=== PATIENT | male | born 1980 | race African-American/Black ===

== ENCOUNTER → 2018-03-08 | Outpatient (CLI) | payer OTHER ==
[2018-03-08 19:50] LABS: ALBUMIN/GLOBULIN RATIO 1.38 (1.00-1.93); ALKALINE PHOSPHATASE 69 U/L (45-117); ALT/SGPT 21 U/L (12-78); ANION GAP 5 MEQ/L (8-16); AST/SGOT 9 U/L (7-37); BILIRUBIN,TOTAL 0.4 MG/DL (0.2-1.0); BLOOD UREA NITROGEN 17 MG/DL (7-18); CALCIUM LEVEL 9.2 MG/DL (8.5-10.1); CARBON DIOXIDE LEVEL 29 MEQ/L (21-32); CHLORIDE LEVEL 106 MEQ/L (98-107); CHOLESTEROL LEVEL 163 MG/DL (<200); CHOLESTEROL RISK RATIO 4.527 (<5); CREATININE FOR GFR 1.18 MG/DL (0.70-1.30); GLOMERULAR FILTRATION RATE > 60.0 (>60); GLUCOSE, FASTING 104 MG/DL (70-100); HDL CHOLESTEROL 36 MG/DL (>40); LDL CHOLESTEROL 109 MG/DL (<100); NON-HDL-C 127 MG/DL; POTASSIUM SERUM 4.5 MEQ/L (3.5-5.1); SODIUM LEVEL 140 MEQ/L (136-145); TOTAL PROTEIN 6.9 GM/DL (6.4-8.2); TRIGLYCERIDES LEVEL 88 MG/DL (<150)
[2018-03-08 20:03] LABS: ESTIMATED AVERAGE GLUCOSE 160 MG/DL (60-110); HEMOGLOBIN A1c 7.2 %
== END ==
LOC: M WUC 13:46
DX: E11.9 Type 2 diabetes mellitus without complications (principal)
CPT/HCPCS: 80053

== ENCOUNTER 2018-05-19 12:24 | Inpatient (IN) | payer OTHER ==
[~2018-05-19] VITALS: Ht 195.6 cm; Wt 104.8 kg
[~2018-05-19 12:24] MED LIST: COLA100C2; INSULANT; METF500T4; MILKSUS; NOVO70VL; NOVOLOG100 MG/ML; No Historical Meds; POTA10CA2
[2018-05-19] MEDS ORDERED: METF850T4 PO (12:42)
[2018-05-19 13:02] LABS: HEMATOCRIT 45.4 % (42.0-52.0); HEMOGLOBIN 15.3 g/dl (13.5-17.5); MEAN CORPUSCULAR HEMOGLOBIN 29.4 pg (27.0-33.0); MEAN CORPUSCULAR HGB CONC 33.7 g/dl (32.0-36.5); MEAN CORPUSCULAR VOLUME 87.1 fl (80.0-96.0); PLATELET COUNT, AUTOMATED 239 10^3/uL (150-450); RED BLOOD COUNT 5.21 10^6/uL (4.30-6.10); WHITE BLOOD COUNT 6.6 10^3/uL (4.0-10.0)
[2018-05-19 13:46] LABS: ACETAMINOPHEN LEVEL < 2.0 UG/ML (10.0-30.0); ALBUMIN 4.2 GM/DL (3.2-5.2); ALT/SGPT 18 U/L (12-78); BILIRUBIN,DIRECT 0.1 MG/DL (0.0-0.2); BILIRUBIN,TOTAL 0.5 MG/DL (0.2-1.0); BLOOD UREA NITROGEN 10 MG/DL (7-18); CALCIUM LEVEL 9.4 MG/DL (8.5-10.1); CARBON DIOXIDE LEVEL 25 MEQ/L (21-32); CHLORIDE LEVEL 105 MEQ/L (98-107); CREATININE FOR GFR 1.28 MG/DL (0.70-1.30); ETHYL ALCOHOL (ETHANOL) 0.003 % (0.000-0.010); GLOMERULAR FILTRATION RATE > 60.0 (>60); GLUCOSE, FASTING 159 MG/DL (70-100); SALICYLATE LEVEL 3.1 MG/DL (5.0-30.0); SODIUM LEVEL 141 MEQ/L (136-145); THYROID STIMULATING HORMONE 0.942 uIU/ML (0.358-3.740); TOTAL PROTEIN 7.4 GM/DL (6.4-8.2)
[2018-05-19 15:02] LABS: AMPHETAMINES LEVEL URINE NEGATIVE (NEGATIVE); BARBITURATES URINE NEGATIVE (NEGATIVE); BENZODIAZEPINES URINE NEGATIVE (NEGATIVE); CANNABINOIDS URINE POSITIVE (NEGATIVE); COCAINE METABOLITE URINE NEGATIVE (NEGATIVE); METHADONE URINE NEGATIVE (NEGATIVE); OPIATES URINE NEGATIVE (NEGATIVE); PHENCYCLIDINE URINE NEGATIVE (NEGATIVE)
[2018-05-19] MEDS ORDERED: MOM 30ML SUSPENSION UDC PO PRN (17:00)
[2018-05-19] MEDS ORDERED: traZODone 50 MG TAB PO PRN (17:00)
[2018-05-19] MEDS ORDERED: MAALOX 30 ML SUSP *UDC PO PRN (17:00)
[2018-05-19] MEDS ORDERED: ACETAMINOPHEN TAB 650MG DOSE (2X325MG) PO PRN (17:00)
[2018-05-19 17:44] VITALS: BP 148/82
[2018-05-19] MEDS: metFORMIN 850 MG TAB PO SCH (21:10)
[2018-05-20 06:00] VITALS: BP 142/75
[2018-05-20] MEDS: metFORMIN 850 MG TAB PO SCH ×4 (09:00→22:00)
[2018-05-20 12:41] VITALS: BP 120/78
--- NOTE | 2018-05-20 12:55 | NUR ---
Patient seen, note to follow.
[2018-05-20] MEDS: FLUoxetine 10 MG CAP PO SCH (14:23)
[2018-05-20 18:00] VITALS: BP 127/78
[2018-05-20] MEDS ORDERED: PANTOPRAZOLE 40MG TAB (PROTONIX) PO SCH (21:00)
[2018-05-20] MEDS ORDERED: CYCLOBENZAPRINE 10 MG TAB PO PRN (22:30)
[2018-05-21 06:12] VITALS: BP 114/55
[2018-05-21 07:01] LABS: BASO % 0.4 % (0.0-1.0); EOS # 0.2 10^3/uL (0.0-0.50); EOS % 2.3 % (0.0-3.0); HEMATOCRIT 42.2 % (42.0-52.0); HEMOGLOBIN 14.4 g/dl (13.5-17.5); LYMPH # 3.4 10^3/uL (1.5-4.5); MEAN CORPUSCULAR HEMOGLOBIN 29.5 pg (27.0-33.0); MEAN CORPUSCULAR HGB CONC 34.1 g/dl (32.0-36.5); MEAN CORPUSCULAR VOLUME 86.5 fl (80.0-96.0); MONO # 0.6 10^3/uL (0.0-0.8); MONO % 7.1 % (0.0-5.0); NEUTROPHILS # 3.7 10^3/uL (1.8-7.7); NEUTROPHILS % 46.9 % (36.0-66.0); PLATELET COUNT, AUTOMATED 231 10^3/uL (150-450); RED BLOOD COUNT 4.88 10^6/uL (4.30-6.10); WHITE BLOOD COUNT 7.9 10^3/uL (4.0-10.0)
[2018-05-21 07:21] LABS: ALBUMIN 3.9 GM/DL (3.2-5.2); ALT/SGPT 17 U/L (12-78); BILIRUBIN,TOTAL 0.5 MG/DL (0.2-1.0); BLOOD UREA NITROGEN 14 MG/DL (7-18); CALCIUM LEVEL 9.3 MG/DL (8.5-10.1); CARBON DIOXIDE LEVEL 27 MEQ/L (21-32); CHLORIDE LEVEL 105 MEQ/L (98-107); CREATININE FOR GFR 1.27 MG/DL (0.70-1.30); GLOMERULAR FILTRATION RATE > 60.0 (>60); GLUCOSE, FASTING 105 MG/DL (70-100); HEMOGLOBIN A1c 7.2 %; POTASSIUM SERUM 4.3 MEQ/L (3.5-5.1); SODIUM LEVEL 139 MEQ/L (136-145); TOTAL PROTEIN 6.7 GM/DL (6.4-8.2)
[2018-05-21] MEDS ORDERED: metFORMIN (GLUCOPHAGE) 500 MG TAB PO SCH (08:00)
[2018-05-21] MEDS: FLUoxetine 10 MG CAP PO SCH (08:18)
[2018-05-21] MEDS ORDERED: ONDANSETRON 4 MG TAB (S0181) PO PRN (11:00)
--- NOTE | 2018-05-21 11:01 | MHHPE ---
DATE OF ADMISSION: 05/19/2018 CHIEF COMPLAINT: Feels depressed. SUBJECTIVE: He is 37 years old. He is single. He had partner. They have been together for the last couple of years, she has a daughter, who is 13, lives with her. Patient came in to the hospital yesterday, says he was hoping to talk to someone, let out his concerns and frustrations, says he was hoping he would see someone from mental health, a counselor, but was upset when assessed and was hospitalized involuntarily. Says that has irrigated him, that was not his intention, but had wanted to let out matters that have been bothering him. He has been feeling depressed, says for months, possibly years, but that things had escalated recently. Says he and his girlfriend are having argument, she would not back off, he decided to put a gun to his head, says did not intend killing himself, does not think he was going to pull the trigger, but that he wanted her to back off. Says the fact that he had done that, picked up a gun, worried him and he decided to come in, hoping he would talk to a counselor, but not be admitted, as mentioned previously. Says he felt frustrated, and tends to get angry and upset, says others notice that, his girlfriend points it out, says this upsets him even further. Says has felt he has required help for quite a while, but that when he has mentioned it to others, including a couple of friends or acquaintances, says they have tended to brush it off. Does not remember the last time he felt well consistently. Says gets into an argument with his girlfriend on matters, which would not have bothered him a while back, but currently do. He says these matters are also sometimes from the past, she has a habit if bringing them up, he does not like conflict, tends to avoid it, becomes anxious when she does, and then in frustration, he would start shouting at times. Feels depressed, considerable portion of the time, most days. Sleep is fair, at times broken. Appetite is somewhat diminished as well. He had lost weight intentionally. He is a diabetic, has been on insulin, that was recently discontinued, now he uses metformin. He says at times, he gets so frustrated, he tends to throw up, and then feels better. Other stressors include his current commute to work. He lives here in [place], had lived in the past for about 15 years, went to a couple of other places, all in the context of his job, he says when he returned, within the last couple of years, the job has been in [place]. He has rented an apartment in [place], stays there for the better part of the week, and comes to [place] on weekends, sometimes Monday afternoon. Says when here, does need to catch up, but that his partner tends to get very upset, the patient feels quite quickly so, and unreasonably, when he is tired, she has things for him to do. He says he would appreciate a little appreciation, acknowledgement from her, but that she does not see it. There are often times, including this week, where he will leave for [place] quite early in the morning and then will commute back the same day. So that becomes tiring. 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 Says he has been doing this for the past several years. Says his concentration has been okay, but at times, it has been a challenge. Says, he also gets, what he terms as migraines, characterized by intense headaches, flashes of light, says he has had them off and on for a long time. He has not seen a neurologist. Sees primary care, appears to be Dr. Walter's office on [facility], he says has been diagnosed with diabetes, about 10 years ago. He has periods where he feels hopeless, there is no psychomotor retardation, currently denies any suicidal thoughts or intents. REVIEW OF SYSTEMS: No history consistent with hypomania nor jacki. Says there are periods when he may be elated, but usually without rhyme or reason. Does not think that the periods of irritability extended. No history consistent with posttraumatic stress disorder. Says he has wanted to seek help for a while but felt hesitant, says spoke with a couple of friends, they encouraged him to do so a while back, has not been hospitalized nor has he had formal treatment in the past. Also notices he gets angry more easily than he used to, says his girlfriend points that out. 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 Says he stopped about 4 years ago. Says he was never formally diagnosed but has had many concussions during playing football. Says he does not think that he was completely backed out on any occasions, but has had several occasions where he "lost time" and did not know where the previous 3 minutes went. PAST PSYCHIATRIC HISTORY: None formally. No history of any patient hospitalizations or suicide attempts. FAMILY PSYCHIATRIC HISTORY: He says one of his sisters has emotional difficulties, and was recently hospitalized as well, within the last month or so. He is not much in touch with them. SUBSTANCE ABUSE HISTORY: Denies any of significance, or at present. SOCIAL HISTORY: Said he had a rough upbringing and was emancipated as an adult when he was 12, this is through the authorities in [place]. Says he was homeless and had difficult times, this was after his father . Patient was 12 at the time, had a chronic infection, his mother has the same infection. He says he helped look after his mother and sisters when he was quite young, a teenager, virtually since he graduated high school. He says later in life, possibly mid 20s or late 20s or so, he did well, enjoyed playing football and in different places and then was on [employer] [place] for football, toured various places in [place]. 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 He commutes to [place] for work stays there for a week, and then he returns, but there are times when he goes back and forth daily, has done so even in the last week or so. Says speaks to a lot of females, often, strangers, feels relieved with that and says his girlfriend questions his fidelity. Says he is a private person, and that leads to difficulties with others, including his current relationship. He gets upset when his partner mentions what they had done when they meet others. Says he thinks he has been private for most of his life, has preferred it that way. Was recently concerned, wishes for the relationship to continue, as girlfriend's daughter lost her father in the last year or so. He says he was not aware of it until a little later. Says he gets along well with the daughter. Says he is not much in touch with mother and sisters. Mother a few years ago, says still feels guilty about his not being there to help look after her, would visit periodically. Says sisters looked after her. MENTAL STATUS EXAMINATION: He is tall. He is bearded. He is cooperative. There is no agitation. No psychomotor retardation. He is coherent. No abnormal movement noted. Affect quite broad, at times appears almost intense in his demeanor. No formal thought disorder. Affect is fairly broad. Denies any thoughts of harming anyone else, denies harming himself. No evidence for any psychosis. No fluctuation of consciousness. He is alert, he is oriented to time, place and person. Can spell the word house forwards and backwards, could recall only one out of three objects after 5 minutes, including with prompting. Intellect is average. Judgment and insight are compromised. VITAL SIGNS: Blood pressure 127/78, pulse 90, temperature 98.3. INVESTIGATIONS: Complete blood count essentially within normal limits. Chemistries show normal limits except for glucose 159. Urine toxicology is positive for cannabinoids. ASSESSMENT: Major depressive disorder, moderate to severe, possibly chronic. Other specified anxiety disorder. Disputes with girlfriend. Commute to [place] regarding his work. Difficult childhood, traumatic. Has had concussions most likely, these may have impacted his moods, irritability, impulse control as well. Has been clinically significantly depressed, may well be minimizing it now, but has struggled for years. Also is clinically significantly anxious, unclear if he meets criteria for generalized anxiety disorder. His experience as football player is quite likely to have lead to concussions, which may impact his emotional state, including lability, moods. Plan Various options are discussed, and he is admitted to inpatient psychiatry. He is placed on relative precautions. He meets criteria for involuntary hospitalization. I would suggest obtaining collateral information for as complete a picture as possible. After discussing the risks, benefits, drawbacks and alternatives, he is started on Prozac at 10 mg daily, to be titrated upwards. I would also suggest that an assessment is made regarding migraines and also neuropsychological assessment, which can be done as an outpatient. He will see the assigned psychiatrist tomorrow, as well as the full treatment team. Says he needs to get back to work, requests a letter indicating he was hospitalized. He will discuss that with the treatment team, and I would also suggest him considering his taking a break from work do to his current condition. The assessment took 60 minutes. I would anticipate a 5-7 day stay.
[2018-05-21] MEDS ORDERED: PROZ10CA7 PO (14:04)
[2018-05-21] MEDS ORDERED: GLUC500T PO (14:04)
[2018-05-21] MEDS ORDERED: ONDA4TAB5 PO (14:04)
[2018-05-21] MEDS ORDERED: PANT40TA3 PO (14:04)
[2018-05-21] MEDS ORDERED: CYCL10TA PO (14:04)
[2018-05-21] MEDS ORDERED: TRAZO50TA PO (14:04)
--- NOTE | 2018-05-21 14:28 | HPE ---
DATE OF ADMISSION: 05/19/2018 Please refer to the psychiatric history and evaluation for further details on this admission. This examination and history is intended for medical issues which may need treatment, followup or consultation on this 37-year-old male. ALLERGIES: No known allergies. PRIMARY CARE PROVIDER: He states Dr. Alicea. SOCIAL HISTORY: He is single. He does not drink alcohol. He smokes one pack of cigarettes per day. Recreational drug use - marijuana. PAST MEDICAL HISTORY: 1. Migraines. 2. Insulin dependent diabetes type 2. 3. Chronic back pain. PAST SURGICAL HISTORY: Negative. HOME MEDICATIONS: - metformin ER 850 mg by mouth three times a day which he states he takes sporadically LABORATORY DATA: CBC was normal. Electrolytes were normal. BUN 10, creatinine 1.28. Non fasting glucose 159. Urine was positive for cannabinoids. FAMILY HISTORY: Noncontributory. REVIEW OF SYSTEMS: 10 systems review was done. Patient states the Prozac seemed to have bothered his stomach, it was a little office. He says he had a lot of loose stool after the metformin and he has not taken it consistently three times a day. His blood sugar at 4 o'clock was 65. Will decrease his dose to 500 by mouth twice a day with meals. Will continue on finger sticks twice a day. Will get a hemoglobin A1c. PHYSICAL EXAMINATION: 37-year-old cooperative male in no acute distress. Height 77 inches. Weight 103 kg. Body mass index (BMI) 27. Blood pressure 127/78. Temperature 98. Pulse 90. Respirations 16. The patient is alert and oriented times three. Pupils equal and reactive to light. Extraocular movements intact. Cornea and sclera clear. Conjunctiva normal. No facial asymmetry. Pharynx, tongue and gums pink and moist. Tongue is midline. Neck is supple, without lymphadenopathy. No thyromegaly. No goiter. Carotids 2+, without bruit. Chest clear to auscultation, without wheeze or retraction. Heart is regular. Abdomen soft, nontender. No masses. No pulsations. No bruits. No organomegaly. Bowel sounds positive. Genitourinary ()/Rectal: Not done. Extremities show equal strength, full range of motion. No cyanosis, clubbing or edema. Complains of some slight back and spasm with flexion and extension over the last couple of days. Deep tendon reflexes 2+ bilaterally. IMPRESSION AND PLAN: 1. Psychiatric. Plan per psychiatry. 2. Stomach upset. Will give Protonix 40 mg by mouth daily. Encourage increased fluids by mouth. Decrease metformin to 500 by mouth. 3. Monitor finger stick blood sugar. 4. Chronic back pain with some slight spasm. Flexeril 10 mg by mouth at bedtime by mouth as needed.
--- NOTE | 2018-05-21 14:35 | MHDSPDOC ---
[facility] Discharge Summary Discharge Summary DATE OF ADMISSION: May 19, 2018 at 16:56 DATE OF DISCHARGE: May 21, 2018 DISCHARGE DIAGNOSES: 1. Major Depressive Disorder 2. Other Specified Anxiety Disorder REASON FOR ADMISSION: As per ED: "Pt self-presented stating increased depression with SI. Pt reluctantly admits he placed a loaded shotgun in his mouth this morning, contemplating suicide. Pt reports being extremely depressed over the last few weeks, but has had depression for many years. he has never received and treatment, no hospitalizations, denies any attempts at self-harm previously. Pt says he has been "begging for help" for the last 15 years but "no one listens and they think I am fine". Pt cites multiple stressors in his life including relationship dysfunction with frequent disagreements, commuting long distance to his job in [place], concern for his girlfriend's child who recently lost her father. Patient indicates he also has other stressors but does not wish to discuss. Patient is tearful through much of the interview". CONSULTANTS INVOLVED: None. TREATMENT AND PROGRESS ON THE UNIT: Patient was admitted to [facility] from the emergency department. He states that following the episode that occurred with his gun on Monday morning, he removed his guns from his home and gave them to his best friend. He then drove himself to the hospital to inquire about finding a counselor to share his concerns with. Per the medical record, he was upset when assessed and hospitalized involuntarily. Mr. Cox shared that he did not think he would hurt himself, but that he was concerned that he even thought about it and put a gun to his head. This morning he shared concern with the nursing staff that he was nauseas and thought it may be from his recently prescribes Prozac, 10mg daily. He was given Zofran to take 20-30 minutes prior to meals. Today, he shared that he is thankful for his hospitalization as it has given him time to think about his situation, his emotions and the important people in his life. He does not believe his symptoms are as severe as others on the unit. Mr. Cox would like to be discharged and beehives his stay at [facility] was beneficial. He is very open about wishing to establish care with a mental health provider. He is thankful for his support network. HOSPITAL COURSE: As above. DISCHARGE ASSESSMENT: Patient is denies SI/HI. He does not show signs of psychosis or jacki. He openly admits to feelings of depression and wishes to seek further treatment after discharge. He reiterates that he has a strong support network including his girlfriend, his best friend and his sisters. Mr. Cox contracts for safety. MENTAL STATUS EXAMINATION ON DISCHARGE: Speech is clear and coherent, normal rate/tone/volume, without pressure Thought processes including: Goal-directed, logical Thought content:Denies SI/HI. Does not describe obsessions, or delusions Abstract reasoning, and computation: Intact Description of abnormal or psychotic thoughts: no evidence of psychosis, no hallucinations Judgment: fair Insight: fair Orientation: Oriented x3 Recent and remote memory: Intact Attention span and concentration: Intact Language: normal rate and volume Fund of knowledge: Full Mood: Euthymic Affect: Full, congruent MEDICATIONS ON DISCHARGE: 1. Metformin Hydrochloride (Metformin HCl) 850 Mg Tab, 850 MG PO TID PLAN/FOLLOWUP ARRANGEMENTS: 1. Mental Health Appt Mental Health [facility] with therapist,ORIN SAEED, on May 25, 2018 at 0 9:00 Address of Clinic or Practice: [address] [place] [address] A [address] Medical Follow Up [facility] with DR. NEWBERRY on Jun 04, 2018 at 14:00 Address of Clinic or Practice: [address] [place] [address] The amount of time spent in the coordination of care for this patient was approximately >30 minutes. Vital Signs/I&Os Vital Signs Date Time Temp Pulse Resp B/P (MAP) Pulse Ox O2 Delivery O2 Flow Rate FiO2 05/21/18 06:12 97.8 50 14 114/55 (74) Room Air 05/19/18 17:44 99 Laboratory Data Labs 24H Laboratory Tests 2 05/20/18 16:55: Bedside Glucose (Misc Panel) 65L 05/20/18 21:59: Bedside Glucose (Misc Panel) 136H 05/21/18 06:28: Bedside Glucose (Misc Panel) 112H, Anion Gap 7L, Glomerular Filtration Rate > 60.0, Estimated Mean Plasma Glucose 160H, Hemoglobin A1c 7.2, Blood Urea Nitrogen 14, Creatinine 1.27, Sodium Level 139, Potassium Level 4.3, Chloride Level 105, Carbon Dioxide Level 27, Calcium Level 9.3, Aspartate Amino Transf (AST/SGOT) 11, Alanine Aminotransferase (ALT/SGPT) 17, Alkaline Phosphatase 63, Total Bilirubin 0.5, Total Protein 6.7, Albumin 3.9, Albumin/Globulin Ratio 1.39 05/21/18 06:29: Immature Granulocyte % (Auto) 0.3, White Blood Count 7.9, Red Blood Count 4.88, Hemoglobin 14.4, Hematocrit 42.2, Mean Corpuscular Volume 86.5, Mean Corpuscular Hemoglobin 29.5, Mean Corpuscular Hemoglobin Concent 34.1, Red Cell Distribution Width 12.9, Platelet Count 231, Neutrophils (%) (Auto) 46.9, Lymphocytes (%) (Auto) 43.0, Monocytes (%) (Auto) 7.1H, Eosinophils (%) (Auto) 2.3, Basophils (%) (Auto) 0.4, Neutrophils # (Auto) 3.7, Lymphocytes # (Auto) 3.4, Monocytes # (Auto) 0.6, Eosinophils # (Auto) 0.2, Basophils # (Auto) 0.0, Nucleated Red Blood Cells % (auto) 0.0 05/21/18 12:05: Bedside Glucose (Misc Panel) 107H CBC/BMP Laboratory Tests 05/21/18 06:28 Calcium Level 9.3, Aspartate Amino Transf (AST/SGOT) 11, Alanine Aminotransferase (ALT/SGPT) 17, Alkaline Phosphatase 63, Total Bilirubin 0.5, Total Protein 6.7, Albumin 3.9 05/21/18 06:29 Red Blood Count 4.88, Mean Corpuscular Volume 86.5, Mean Corpuscular Hemoglobin 29.5, Mean Corpuscular Hemoglobin Concent 34.1, Red Cell Distribution Width 12.9, Neutrophils (%) (Auto) 46.9, Lymphocytes (%) (Auto) 43.0, Monocytes (%) (Auto) 7.1 H, Eosinophils (%) (Auto) 2.3, Basophils (%) (Auto) 0.4, Neutrophils # (Auto) 3.7, Lymphocytes # (Auto) 3.4, Monocytes # (Auto) 0.6, Eosinophils # (Auto) 0.2, Basophils # (Auto) 0.0 Medications Scheduled Fluoxetine HCl (Prozac) 10 Mg Cap, 10 MG PO DAILY for depression, #7 Metformin Hydrochloride (Glucophage) 500 Mg Tab, 500 MG PO BID@08,18 for diabetes, #14 Pantoprazole Sodium (Pantoprazole Sodium) 40 Mg Tab, 40 MG PO QHS for GERD, #7 Scheduled PRN Cyclobenzaprine HCl (Cyclobenzaprine HCl) 10 Mg Tab, 10 MG PO QHS PRN for BACK PAIN, #7 Ondansetron HCl (Ondansetron HCl) 4 Mg Tab, 4 MG PO Q4HP PRN for NAUSEA OR VOMITING, #42 Trazodone HCl (Trazodone HCl) 50 Mg Tab, 50 MG PO QHSP PRN for INSOMNIA, #7 Allergies Coded Allergies: No Known Allergies (Verified Allergy, Unknown, 07/09/08) GME ATTESTATION GME ATTESTATION My faculty preceptor for this patient encounter was physically present during the encounter and was fully available. All aspects of the patient interview, examination, medical decision making process, and medical care plan development were reviewed and approved by the faculty preceptor. The faculty preceptor is aware and concurs with the plan as stated in the body of this note and will attest to such by his/her cosignature. HANK JURADO DO May 21, 2018 14:35
== END 2018-05-21 14:18 | disposition home or self-care (01) | DRG 885 ==
LOC: M ED 12:24 → M ED INP 16:56 → M PSY 17:38
PROVIDERS: ADMIT Psychiatry & Neurology Psychiatry; ATTEND Psychiatry & Neurology Psychiatry
DX: F32.2 Major depressive disorder, single episode, severe without psychotic features (principal); F41.8 Other specified anxiety disorders; Z63.0 Problems in relationship with spouse or partner; F17.210 Nicotine dependence, cigarettes, uncomplicated; E11.9 Type 2 diabetes mellitus without complications; G43.909 Migraine, unspecified, not intractable, without status migrainosus; M54.9 Dorsalgia, unspecified; Z79.84 Long term (current) use of oral hypoglycemic drugs; M62.830 Muscle spasm of back

== ENCOUNTER → 2019-10-24 | Outpatient (CLI) | payer BC, OTHER ==
[~2019-10-24] MED LIST changes: +CYCL-707 PO; +GLUC500T PO; +METF850T4 PO; +ONDA-83 PO; +PANT40TA29 PO; +PROZ10CA7 PO; +TRAZ1TAB10 PO
[2019-10-24 11:46] LABS: PROSTATIC SPECIFIC AG MONITOR 0.32 NG/ML (< 4.00)
== END ==
LOC: M WUC 08:55
PROVIDERS: ATTEND Urology
DX: R79.89 Other specified abnormal findings of blood chemistry (principal)

== ENCOUNTER → 2020-01-24 | Outpatient (CLI) | payer BC | LOC: M WUC 18:30 | PROVIDERS: ATTEND Urology | DX: N46.01 Organic azoospermia (principal); R79.89 Other specified abnormal findings of blood chemistry | CPT/HCPCS: 36415; 84403; 85014; G0103 ==

== ENCOUNTER → 2020-06-26 | Outpatient (REF) | payer OTHER | LOC: M LAB REF 16:14 | PROVIDERS: ATTEND Registered Nurse | DX: Z83.0 Family history of human immunodeficiency virus [HIV] disease (principal) ==

== ENCOUNTER → 2020-07-09 | Outpatient (CLI) | payer BC, OTHER ==
[2020-07-11 14:08] LABS: EBV VIRAL CAPSID AG IgG >600.0 U/mL (0.0-17.9); EBV VIRAL CAPSID AG IgM <36.0 U/mL (0.0-35.9)
== END ==
LOC: M WUC 14:28
PROVIDERS: ATTEND Physician Assistant
DX: R53.83 Other fatigue (principal)

== ENCOUNTER → 2020-08-31 | Outpatient (CLI) | payer BC, OTHER ==
[~2020-08-31] MED LIST changes: +ATOR1TAB21 PO; +CLOM50TA9 PO; +LANTINJ4 SC; +LISI2.5T2 PO; +METF-877 PO
== END ==
LOC: M LABSMTC 09:29
PROVIDERS: ATTEND Anesthesiology
DX: Z01.818 Encounter for other preprocedural examination (principal); Z11.52 Encounter for screening for COVID-19

== ENCOUNTER → 2021-09-30 | Outpatient (CLI) | payer BC, OTHER ==
[~2021-09-30] MED LIST changes: -LISI2.5T2 PO; +LISI2.5T9 PO
== END ==
LOC: M WUC 15:35
PROVIDERS: ATTEND Registered Nurse
DX: M51.37 Other intervertebral disc degeneration, lumbosacral region (principal)

== ENCOUNTER → 2022-01-21 | Outpatient (REF) | payer OTHER ==
[2022-01-23 08:08] LABS: FOLATE 18.5 ng/mL (>3.0)
== END ==
LOC: M LAB REF 16:04
PROVIDERS: ATTEND Registered Nurse
DX: R53.83 Other fatigue (principal); N52.9 Male erectile dysfunction, unspecified

== ENCOUNTER → 2022-06-03 | Outpatient (CLI) | payer OTHER | LOC: M RAD 07:42 | PROVIDERS: ATTEND Physician Assistant | DX: C65.1 Malignant neoplasm of right renal pelvis (principal); N50.3 Cyst of epididymis; N50.89 Other specified disorders of the male genital organs ==

== ENCOUNTER → 2022-11-04 | Outpatient (REF) | payer OTHER ==
[2022-11-05 10:08] LABS: LDL DIRECT 137 mg/dL (0-99)
== END ==
LOC: M LAB REF 12:21
PROVIDERS: ATTEND Nurse Practitioner Family
DX: E78.00 Pure hypercholesterolemia, unspecified (principal); E11.65 Type 2 diabetes mellitus with hyperglycemia

== ENCOUNTER → 2023-06-26 | Outpatient (CLI) | payer OTHER | LOC: M RAD 14:45 | PROVIDERS: ATTEND Registered Nurse | DX: N50.89 Other specified disorders of the male genital organs (principal) ==

== ENCOUNTER → 2023-06-30 | Outpatient (REF) | payer OTHER ==
[2023-06-30 17:02] LABS: HEMATOCRIT 44.1 % (42.0-52.0); HEMOGLOBIN 14.6 g/dl (13.5-17.5); MEAN CORPUSCULAR HEMOGLOBIN 29.1 pg (27.0-33.0); MEAN CORPUSCULAR HGB CONC 33.1 g/dl (32.0-36.5); MEAN CORPUSCULAR VOLUME 87.8 fl (80.0-96.0); PLATELET COUNT, AUTOMATED 202 10^3/uL (150-450); RED BLOOD COUNT 5.02 10^6/uL (4.30-6.10); WHITE BLOOD COUNT 9.2 10^3/uL (4.0-10.0)
[2023-06-30 17:14] LABS: THYROID STIMULATING HORMONE 2.046 uIU/ML (0.55-4.78)
[2023-06-30 17:15] LABS: ALBUMIN 3.8 G/DL (3.2-5.2); ALKALINE PHOSPHATASE 93 U/L (46-116); ALT/SGPT 25 U/L (7.0-40); AST/SGOT 11 U/L (<34); BILIRUBIN,TOTAL 0.4 MG/DL (0.3-1.2); BLOOD UREA NITROGEN 19 MG/DL (9-23); CALCIUM LEVEL 9.6 MG/DL (8.5-10.1); CARBON DIOXIDE LEVEL 29 MMOL/L (20-31); CHLORIDE LEVEL 108 MMOL/L (98-107); GLOMERULAR FILTRATION RATE > 60.0 (>60); GLUCOSE, FASTING 292 MG/DL (60-100); POTASSIUM SERUM 4.4 MMOL/L (3.5-5.1); SODIUM LEVEL 138 MMOL/L (136-145); TESTOSTERONE 453 NG/DL (241-827); TOTAL PROTEIN 6.8 G/DL (5.7-8.2)
[2023-06-30 17:17] LABS: LUTEINIZING HORMONE 10.4 mIU/ML (1.5-9.3); PROLACTIN 6.38 NG/ML (2.1-17.7)
[2023-06-30 17:18] LABS: ESTRADIOL 32.8 PG/ML (<39.8)
== END ==
LOC: M LABWUC 16:23
PROVIDERS: ATTEND Obstetrics & Gynecology Reproductive Endocrinology
DX: Z31.41 Encounter for fertility testing (principal)

== ENCOUNTER → 2023-07-25 | Outpatient (CLI) | payer OTHER | LOC: M RAD 12:49 | PROVIDERS: ATTEND Physician Assistant | DX: N50.89 Other specified disorders of the male genital organs (principal) ==

== ENCOUNTER → 2024-05-31 | Outpatient (CLI) | payer BC, OTHER ==
[2024-05-31 13:51] LABS: BLOOD UREA NITROGEN 26 MG/DL (9-23); CALCIUM LEVEL 10.4 MG/DL (8.5-10.1); CARBON DIOXIDE LEVEL 30 MMOL/L (20-31); CHLORIDE LEVEL 102 MMOL/L (98-107); GLOMERULAR FILTRATION RATE > 60.0 (>60); GLUCOSE, FASTING 154 MG/DL (60-100); POTASSIUM SERUM 4.9 MMOL/L (3.5-5.1); SODIUM LEVEL 141 MMOL/L (136-145)
== END ==
LOC: M WUC 08:10
PROVIDERS: ATTEND Nurse Practitioner Family
DX: E11.65 Type 2 diabetes mellitus with hyperglycemia (principal)

== ENCOUNTER → 2024-07-23 | Outpatient (REF) | payer BC, OTHER ==
[2024-07-23 16:33] LABS: BLOOD UREA NITROGEN 16 MG/DL (9-23); CALCIUM LEVEL 9.6 MG/DL (8.5-10.1); CARBON DIOXIDE LEVEL 31 MMOL/L (20-31); CHLORIDE LEVEL 103 MMOL/L (98-107); CREATININE FOR GFR 1.31 MG/DL (0.70-1.30); GLOMERULAR FILTRATION RATE > 60.0 (>60); GLUCOSE, FASTING 143 MG/DL (60-100); POTASSIUM SERUM 5.2 MMOL/L (3.5-5.1); SODIUM LEVEL 143 MMOL/L (136-145)
== END ==
LOC: M LABWUC 15:08
PROVIDERS: ATTEND Nurse Practitioner Family
DX: E83.52 Hypercalcemia (principal)

== ENCOUNTER 2024-11-17 21:04 | Emergency (ER) | payer BC, OTHER ==
[~2024-11-17] VITALS: Ht 195.6 cm; Wt 109.0 kg
[~2024-11-17 21:04] MED LIST changes: +CLOM50TA31 PO; -CLOM50TA9 PO
[2024-11-17 21:06] VITALS: TEMP 98
[2024-11-17 22:09] LABS: BASO # 0.1 10^3/uL (0.0-0.2); BASO % 0.7 % (0.0-1.0); EOS # 0.2 10^3/uL (0.0-0.5); EOS % 1.9 % (0.0-3.0); LYMPH # 3.3 10^3/uL (1.5-5.0); LYMPH % 30.4 % (24.0-44.0); MONO # 0.7 10^3/uL (0.0-0.8); MONO % 6.6 % (2.0-8.0); NEUTROPHILS # 6.4 10^3/uL (1.5-8.5); NEUTROPHILS % 60.1 % (36.0-66.0); PLATELET COUNT, AUTOMATED 234 10^3/uL (150-450)
[2024-11-17 22:21] LABS: INR 0.85
[2024-11-17 22:30] LABS: CK-MB VALUE MASS 1.3 NG/ML (<3.6)
[2024-11-17 22:47] LABS: ALT/SGPT 16 U/L (7.0-40); AST/SGOT 19 U/L (<34); CALCIUM LEVEL 9.3 MG/DL (8.5-10.1); CARBON DIOXIDE LEVEL 24 MMOL/L (20-31); CHLORIDE LEVEL 105 MMOL/L (98-107); CPK CREATINE PHOSPHOKINASE 146 U/L (46-171); CREATININE FOR GFR 1.27 MG/DL (0.70-1.30); GLOMERULAR FILTRATION RATE 71.0 (>60); MB/CK RELATIVE INDEX 0.89 (< OR =4); POTASSIUM SERUM 4.5 MMOL/L (3.5-5.1); SODIUM LEVEL 141 MMOL/L (136-145)
[2024-11-17 23:41] LABS: CK-MB VALUE MASS < 1.0 NG/ML (<3.6)
[2024-11-17 23:48] LABS: CPK CREATINE PHOSPHOKINASE 137 U/L (46-171)
[2024-11-17] MEDS: MAALOX 30 ML SUSP *UDC PO ONE (23:53)
[2024-11-17] MEDS: LIDOCAINE VISCOUS 2% SOLN 15 ML UDC PO ONE (23:54)
[2024-11-18 01:47] LABS: CK-MB VALUE MASS < 1.0 NG/ML (<3.6)
[2024-11-18] MEDS ORDERED: ISOVUE-370 76% 100 ML VIAL As Ordered ONE (01:48)
[2024-11-18 01:54] LABS: CPK CREATINE PHOSPHOKINASE 139 U/L (46-171)
[2024-11-18] MEDS ORDERED: TIRZ5PEN SC (03:44)
[2024-11-18] MEDS ORDERED: ROSU5TAB49 PO (03:44)
[2024-11-18] MEDS ORDERED: FARX1TAB3 PO (03:44)
[2024-11-18] MEDS ORDERED: TRES100I SC (03:44)
[2024-11-18 03:45] VITALS: BP 142/75; O2SAT 100
[2024-11-18] MEDS ORDERED: HOME MED LIST COMPLETE! XX SCH (03:45)
== END 2024-11-18 04:05 | disposition home or self-care (01) ==
LOC: M ED 21:04
DX: R07.9 Chest pain, unspecified (principal); E11.9 Type 2 diabetes mellitus without complications; E78.5 Hyperlipidemia, unspecified; G47.00 Insomnia, unspecified; F17.210 Nicotine dependence, cigarettes, uncomplicated; F12.10 Cannabis abuse, uncomplicated; Z79.4 Long term (current) use of insulin; Z79.899 Other long term (current) drug therapy
CPT/HCPCS: 36415; 71045; 71275; 74176; 80048; 80076; 82550; 82553; 83690; 84443; 84484; 85025; 85379; 85610; 85730; 87486; 87581; 87633; 87798; 93005; 93041; 94760; 99285; Q9967

== ENCOUNTER → 2024-12-03 | Outpatient (CLI) | payer BC, OTHER ==
[~2024-12-03] MED LIST changes: +FARX1TAB3 PO; +PROZ10CA11 PO; -PROZ10CA7 PO; +ROSU5TAB49 PO; +TIRZ5PEN SC; +TRES100I SC
== END ==
LOC: M RAD 07:58
PROVIDERS: ATTEND Chiropractor
DX: M47.816 Spondylosis without myelopathy or radiculopathy, lumbar region (principal); M51.26 Other intervertebral disc displacement, lumbar region; M47.817 Spondylosis without myelopathy or radiculopathy, lumbosacral region; M51.362 Other intervertebral disc degeneration, lumbar region with discogenic back pain and lower extremity pain; M99.03 Segmental and somatic dysfunction of lumbar region